=== PATIENT | male | born 1940 | race Hispanic/Latino ===

== ENCOUNTER 2017-01-10 10:08 | Outpatient (CLI) | payer MEDICARE, BC ==
--- NOTE | 2017-01-10 11:41 | MRI ---
BRAIN MRI WITH AND WITHOUT CONTRAST: DATE: 01/10/17. COMPARISON: None. HISTORY: Sudden hearing loss on the right, air buzzing sound in right ear. TECHNIQUE: Multiplanar, multisequence MR imaging of the brain is obtained with and without contrast using an in ternal auditory canal protocol. FINDINGS: The diffusion weighted imaging demonstrates no evidence for acute infarction. Regional bone marrow signal intensity appears within normal limits. There is mild polypoid mucosal thickening involving the alveolar recess of bilateral maxillary sinus es. There is mild diffuse cerebral volume loss. No midline shift or mass effect present. No ventricula r enlargement noted. Thin section T2 weighted imaging through the skull base demonstrates normal T2 signal intensity in t he region of the cerebellopontine angle, internal auditory canal, cochlea, vestibule, and semicircul ar canals bilaterally. Arterial flow voids at the axial level of the skull base appear grossly unremarkable on the T2 weigh delon imaging. Postcontrast imaging demonstrates no abnormal enhancement within the brain parenchyma. In addition, there is no abnormal enhancement involving the region of the cerebellopontine angle on either side. No abnormal enhancement of the internal auditory canal, cochlea, vestibule, or semicircular canals noted on either side. There is a slightly high-riding jugular bulb on the right. IMPRESSION: Mildly high-riding right jugular bulb. The study appears grossly unremarkable otherwise. POS: [facility]
== END 2017-01-10 10:09 | disposition home or self-care (01) ==
LOC: MRI 10:08
PROVIDERS: ATTEND Specialist
DX: H91.20 Sudden idiopathic hearing loss, unspecified ear (principal); H83.8X9 Other specified diseases of inner ear, unspecified ear
CPT/HCPCS: 70553

== ENCOUNTER 2017-03-24 12:02 | Outpatient (CLI) | payer MEDICARE, BC ==
--- NOTE | 2017-03-24 12:28 | RAD ---
RADIOGRAPH CHEST 2 VIEWS: HISTORY: 76-year-old male with dyspnea. FINDINGS: There is no air space density, pulmonary edema, pleural effusion, pneumothorax, or cardiomegaly. IMPRESSION: No acute cardiopulmonary findings. conrado POS: [facility]
== END 2017-03-24 12:03 | disposition home or self-care (01) ==
LOC: RAD 12:02
PROVIDERS: ATTEND Internal Medicine Pulmonary Disease
DX: R06.00 Dyspnea, unspecified (principal)
CPT/HCPCS: 71020

== ENCOUNTER 2017-09-20 13:11 | Emergency (ER) | payer MEDICARE, BC ==
[2017-09-20 13:49] LABS: #Eosinphils 0.1 thou/uL (0.0-0.7); #Monocytes 0.5 thou/uL (0.11-0.59); %Basophils 0.9 % (0.0-1.0); %Eosinophils 2.4 % (0.0-10.0); %Lymphocytes 34.7 % (21.0-51.0); %Monocytes 8.6 % (0.0-10.0); %Neutrophils 53.5 % (42.0-75.0); Hemoglobin 16.2 g/dL (14.0-18.0); Mean Corpuscular HGB CONC 34.2 g/dL (32.0-36.0); Mean Corpuscular Hemoglobin 30.8 pg (27.0-31.0); Mean Corpuscular Volume 90.1 fl (80.0-94.0); Mean Platelet Volume 8.3 fL (7.4-10.4); Platelet Count 199 thou/uL (130-400); RBC Distribution Width 12.6 % (11.5-14.5); Red Blood Cell (RBC) Count 5.27 mill/uL (4.70-6.10); White Blood Cell (WBC) Count 5.7 thou/uL (4.8-10.8)
[2017-09-20] MEDS ORDERED: Aspirin 325 MG TAB ONE (14:03)
[2017-09-20 14:11] LABS: ALT (SGPT) 15 U/L (8-55); AST (SGOT) 15 U/L (5-34); Albumin 4.5 g/dL (3.4-4.8); Alkaline Phosphatase 67 U/L (40-150); Anion Gap 12 mmol/L (10-20); BUN (Urea Nitrogen) 24 mg/dL (8.4-25.7); Bilirubin, Total 0.5 mg/dL (0.2-1.2); CK (CPK) 153 U/L (30-200); Calc. Creatinine Clearance 0 mL/min (70-130); Calcium 9.4 mg/dL (7.8-10.44); Carbon Dioxide 19 mmol/L (23-31); Chloride 110 mmol/L (98-107); Estimated GFR-MDRD 40; Globulin 3.7 g/dL (2.4-3.5); Glucose 119 mg/dL (83-110); Potassium 4.3 mmol/L (3.5-5.1); Protein, Total 8.2 g/dL (5.8-8.1); Sodium 137 mmol/L (136-145)
[2017-09-20 14:15] LABS: CKMB 3.8 ng/mL (0-6.6); Troponin I Less than 0.010 ng/mL (< 0.028)
--- NOTE | 2017-09-20 14:21 | RAD ---
PORTABLE CHEST ONE VIEW: Date: 09-20-17 Time: 2:02 p.m. History: Chest pain. FINDINGS: Comparison is made with exam of 03-24-17. The heart size is normal. The lungs are expanded. The aorta is tortuous. No confluent areas of consol idation, pneumothoraces or pleural effusions are seen. IMPRESSION: No radiographic evidence of acute cardiopulmonary process. POS: [facility]
--- NOTE | 2017-09-20 20:17 | CON ---
DATE OF CONSULTATION: 09/20/2017 PRIMARY CARE PHYSICIAN: Dr. Stephane Abbott. CHIEF COMPLAINT: Chest pain. HISTORY OF PRESENT ILLNESS: Mr. Razo is a pleasant 76-year-old gentleman that has no significant past medical history who presented to the emergency room after experiencing a pressure-like sensatio n in his chest he says. It was not so much pain as it was, he felt like it was hard to breathe. He says this happened around 12:30 today while he was driving his car. 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 He says he felt like it was diffic ult to take in a deep breath and then he started to feel kind of sweaty. It lasted about 30 minutes and then went away. He denies any other symptoms such as nausea, vomiting, no leg swelling, etc. He came to the emergency room for evaluation because he was told that if anything like this ever happen s to him, he should have it checked out. When asked if he has any heart disease, he says no. He had a stress test about 3 years ago in our system which was negative and says that he believes that was just for preop evaluation and he says that he had a stress test about a year ago which was negative. He also says that something like this happen to him a while back and [facility] and he thinks it was due to acid reflux after eating a hea vy meal with the steak and baked potato with lots of sour cream. He does admit that he did have a he isaac meal about 11:00 this afternoon before this happened. He says he ate 2 pretty long chimichanga t acos which were quite spicy and he also has been on an antibiotic over the last couple of days for so me type of skin infection. Right now, the patient feels fine. He says he does not have any signific ant complaints whatsoever. REVIEW OF SYSTEMS: Constitutional: There have been no fevers, chills, no night sweats, no weight lo ss. HEENT: No headache, no dizziness, no visual changes, no sore throat, rhinorrhea, neck pain, no adenopathy. Pulmonary: No hemoptysis, no cough, no wheezing. Cardiovascular: Is as the history of present illness. No PND, no orthopnea. No lower extremity edema. He has good exercise tolerance. He can walk a flight of steps without any difficulty. Gastrointestinal: No abdominal pain, no naus ea, no vomiting, no change in bowels. Genitourinary: No urinary frequency, hematuria, no hesitancy. Neurologic: No focal weakness, numbness, no seizures. Psychiatric: No symptoms of anxiety or dep ression. Skin/Integument: No skin changes. No rash. PAST MEDICAL HISTORY: Negative. PAST SURGICAL HISTORY: He has had an L4-L5 laminectomy. SOCIAL HISTORY: He denies smoking ever. He occasionally drinks. He is and has been for over 20 years and has never remarried. He has 3 sons, 2 that live in [facility]. ALLERGIES: No known drug allergies. FAMILY HISTORY: Significant for heart disease in his father, but he says his father lived to be in [facility] 90s, probably needed a pacemaker and could have lived longer. CURRENT MEDICATIONS: Aspirin only. PHYSICAL EXAMINATION: GENERAL: He is alert and oriented. He appears to be in no acute distress. VITAL SIGNS: Blood pressure was approximately 125/70, heart rate 70, respiratory rate of 18, tempera ture is 98.6. HEENT: Pupils are equal, round, and reactive. Extraocular muscles are intact. His sclerae are anic teric. Throat no erythema, no exudates. NECK: No adenopathy, no bruits. LUNGS: Clear to auscultation. There is no wheezing or rales. CARDIOVASCULAR: He has a normal S1, S2. There is no S3 or S4. No murmurs, clicks or rubs. ABDOMEN: Soft, nontender, nondistended. Positive for bowel sounds. There is no rebound or guarding . EXTREMITIES: There is no clubbing, cyanosis, no edema. NEUROLOGICALLY: The exam is nonfocal. LABORATORY: White blood cell count 5.7, hemoglobin 16.2, hematocrit is 47.4, platelet count is 199. Sodium 137, potassium 4.3, chloride is 110, CO2 is 19, BUN of 24, creatinine 1.69, glucose is 119. Troponin is less than 0.010. ASSESSMENT AND PLAN: This is a pleasant 76-year-old gentleman who presented to the emergency room wi complaints of chest discomfort more like a sensation of difficulty taking a deep breath. However, the symptom has completely resolved. His troponin is negative. His EKG had some T-wave inversions inferiorly into an aVL; however, the patient has had reportedly a nuclear stress test recently which was negative and also had a stress test in our system a few years back which was negative. Given manasa t his symptoms did not last long and have completely resolved, I think it is reasonable that he can b e discharged from the emergency room with close outpatient followup with his primary care physician i n 1 week. I suspect that his symptoms could be GI related as it had been reportedly in the past and should he have any recurrent symptoms, then he can return to the emergency room. He is also instruct ed to take the antibiotic which was possibly doxycycline or Bactrim with food and also with plenty of fluids and to avoid greasy and spicy foods.
== END 2017-09-20 15:51 | disposition home or self-care (01) ==
LOC: ERS 13:11
DX: R07.9 Chest pain, unspecified (principal); Z79.82 Long term (current) use of aspirin
CPT/HCPCS: 71045; 80053; 82553; 83880; 84484; 85025; 93005

== ENCOUNTER 2018-01-19 19:30 | Outpatient (CLI) | payer MEDICARE, BC | END 2018-01-19 19:31 | disposition home or self-care (01) | LOC: SLEEPLAB 19:30 | PROVIDERS: ATTEND Otolaryngology | DX: G47.33 Obstructive sleep apnea (adult) (pediatric) (principal); R06.83 Snoring | CPT/HCPCS: 95811 ==

== ENCOUNTER 2018-07-31 13:45 | Outpatient (CLI) | payer MEDICARE, BC ==
--- NOTE | 2018-08-09 12:04 | ULT ---
LOWER EXTREMITY ARTERIAL EVALUATION USING DOPPLER WAVEFORM ANALYSIS AND SEGMENTAL LIMB PRESSURES: Examination of the Doppler waveforms reveals normal Doppler waveforms bilaterally in both legs extend ing from the femoral artery to the pedal vessels. Ankle-arm index is normal at about 1.1 bilaterally and toe-brachial index is normal. This would be considered a normal resting arterial study of the lower extremity and would be inconsis tent with any significant vascular claudication. POS: [facility]
== END 2018-07-31 13:46 | disposition home or self-care (01) ==
LOC: ULT 13:45
PROVIDERS: ATTEND Family Medicine
DX: R09.89 Other specified symptoms and signs involving the circulatory and respiratory systems (principal)
CPT/HCPCS: 93922

== ENCOUNTER 2018-08-07 12:34 | Outpatient (CLI) | payer MEDICARE, BC ==
--- NOTE | 2018-08-07 14:12 | MRI ---
MRI LUMBAR SPINE WITH AND WITHOUT CONTRAST: HISTORY: Pain. COMPARISON: None. FINDINGS: Conus medullaris is normal in morphology and terminates at the L1 level. L1-2:No significant stenosis L2-3:No significant stenosis L3-4:Broad-based disc protrusion results in near-complete obliteration of the thecal sac. There is as sociated redundancy of nerve roots of cauda equina due to the severe central canal stenosis. Moderate biforaminal stenosis. Modic type II degenerative signal alteration is present. There is retr olisthesis of L3 on 4. L4-5:Disc osteophyte complex mildly effaces ventral thecal sac. There is mild biforaminal stenosis. T here is grade 1 spondylolisthesis. L5-S1:Disc osteophyte complex mildly effaces ventral thecal sac, with mild right foraminal stenosis a nd moderate left foraminal stenosis. Postcontrast imaging reveals no evidence of pathologic enhancement of the conus medullaris or evidenc e of mass-producing enhancement within the vertebral canal. IMPRESSION: Severe central canal stenosis with near complete obliteration of the thecal sac at the L3-4 level due to broad-based disc protrusion. Transcribed Date/Time: 08/07/2018 2:15 PM
[2018-08-07] MEDS ORDERED: Gadobenate Dimeglumine 529 MG/1 ML (20ML VIAL) ONE (17:13)
== END 2018-08-07 12:35 | disposition home or self-care (01) ==
LOC: MRI 12:34
PROVIDERS: ATTEND Family Medicine
DX: M54.17 Radiculopathy, lumbosacral region (principal); M51.26 Other intervertebral disc displacement, lumbar region; M48.061 Spinal stenosis, lumbar region without neurogenic claudication
CPT/HCPCS: 72158; 82565; A9577

== ENCOUNTER 2019-09-08 11:49 | Inpatient (IN) | payer MEDICARE, BC ==
[~2019-09-08 11:49] MED LIST: Iopamidol-370 76% 500 ML 1 ML ONE
[2019-09-08 12:47] LABS: #Lymphocytes 1.5 thou/uL (1.20-3.40); #Monocytes 1.2 thou/uL (0.11-0.59); #Neutrophils 10.6 thou/uL (1.40-6.50); %Basophils 0.4 % (0.0-1.0); %Eosinophils 0.1 % (0.0-10.0); %Lymphocytes 11.4 % (21.0-51.0); %Monocytes 8.7 % (0.0-10.0); %Neutrophils 79.4 % (42.0-75.0); Hemoglobin 14.5 g/dL (14.0-18.0); Mean Corpuscular HGB CONC 34.6 g/dL (32.0-36.0); Mean Corpuscular Hemoglobin 31.5 pg (27.0-31.0); Mean Corpuscular Volume 91.3 fL (78.0-98.0); Mean Platelet Volume 9.2 fL (7.4-10.4); Platelet Count 188 thou/uL (130-400); RBC Distribution Width 12.6 % (11.5-14.5); Red Blood Cell (RBC) Count 4.61 mill/uL (4.70-6.10); White Blood Cell (WBC) Count 13.4 thou/uL (4.8-10.8)
[2019-09-08 13:10] LABS: ALT (SGPT) 12 U/L (8-55); AST (SGOT) 13 U/L (5-34); Albumin 4.1 g/dL (3.4-4.8); Alkaline Phosphatase 66 U/L (40-110); Anion Gap 15 mmol/L (10-20); BUN (Urea Nitrogen) 23 mg/dL (8.4-25.7); Bilirubin, Total 1.2 mg/dL (0.2-1.2); Calc. Creatinine Clearance 0 mL/min (70-130); Calcium 8.8 mg/dL (7.8-10.44); Carbon Dioxide 19 mmol/L (23-31); Chloride 110 mmol/L (98-107); Estimated GFR-MDRD 49; Globulin 3.4 g/dL (2.4-3.5); Glucose 108 mg/dL (83-110); Potassium 3.8 mmol/L (3.5-5.1); Protein, Total 7.5 g/dL (5.8-8.1); Sodium 140 mmol/L (136-145)
--- NOTE | 2019-09-08 14:12 | CT ---
CT OF LEFT HAND AND FOREARM PERFORMED WITH CONTRAST EHNANCEMENT: HISTORY: Patient reports a left hand laceration on the dorsum of the hand four days ago while cleaning lawnmow er blades. Now with fever and soft tissue swelling. Unable to flex second and third metacarpal phalan geal joints. There is no evidence of fracture or any bony destructive type change. 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 Slight increased distance between the scaphoid and lunate w ould raise the possibility of an underlying scapholunate ligament injury. This is not felt to be rela delon to patient's trauma. Soft tissue swelling is on the dorsum of the hand and forearm. There is no signs of abscess. IMPRESSION: Soft tissue swelling on the dorsum of the hand and forearm region. No evidence of abscess and no sign s for any type of compartment syndrome or any associated myositis. POS: [facility]
[2019-09-08] MEDS ORDERED: Ondansetron PF 4 MG/2 ML Vial IVP PRN ×2 (14:51→19:58)
[2019-09-08] MEDS ORDERED: Acetaminophen 325 MG TAB PO PRN (14:51)
[2019-09-08] MEDS ORDERED: Ondansetron ODT 4 MG TAB SL PRN (14:51)
[2019-09-08] MEDS ORDERED: Ibuprofen 200 MG TAB PO PRN (19:58)
[2019-09-08] MEDS ORDERED: hydrALAZINE 20 MG/ML VIAL SLOW IVP PRN (19:58)
[2019-09-08] MEDS ORDERED: Acetaminophen 500 MG TAB PO PRN (19:58)
[2019-09-08] MEDS ORDERED: Ondansetron ODT 4 MG TAB PO PRN (19:58)
[2019-09-08] MEDS ORDERED: cefTRIAXone\\ROCEPHIN 2 GM in Sodium Chloride 0.9% 100 ML IVPB SCH ×2 (20:15→21:00)
[2019-09-08] MEDS ORDERED: cefTRIAXone\\ROCEPHIN 2 GM VIAL ONE (20:25)
[2019-09-08] MEDS: Sodium Chloride 0.9% 1,000 ML IV SCH (20:31)
[2019-09-08] MEDS ORDERED: Vancomycin HCl 1 GM in Sodium Chloride 0.9% 250 ML 250 ML IVPB SCH (21:00)
--- NOTE | 2019-09-08 21:02 | HP ---
PRIMARY CARE PROVIDER: Dr. Stephane Abbott. CHIEF COMPLAINT: Left hand swelling and pain. HISTORY OF PRESENT ILLNESS: This is a 78-year-old male, who presents to [facility] Emergency Department, complaining of approximately 4-day history of left hand swelling, pain after a small laceration over the dorsum of the index finger while sharpening a metal object at home. 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 Patient noted over approximately 48-hour time period increasing swelling and pain to the hand prompting him to seek medical attention at his primary care provider's office. Patient was evaluated and given a tetanus immunization. In addition, received intramuscular penicillin and Keflex with clindamycin for oral use. The patient states he had increased abdominal pain and discomfort and noticed the swelling increased up the forearm near the elbow. Patient became increasingly concerned and presented to the emergency room for evaluation. Patient did admit to feeling chilled and myalgias mainly with left hand and left forearm pain. In the emergency room, patient underwent general evaluation with the oral temperature documented at 100.2 degrees Fahrenheit. Patient received IV doxycycline as well as CT imaging of the hand showing soft tissue swelling, but no organized fluid collection or abscess. PAST MEDICAL HISTORY: Degenerative joint disease of the lumbar spine. PAST SURGICAL HISTORY: Status post L4 on L5 laminectomy/decompression, 09/2012. CURRENT MEDICATIONS: 1. Aspirin 81 mg p.o. daily. 2. Gabapentin 300 mg p.o. t.i.d. ALLERGIES: NO KNOWN DRUG ALLERGIES. FAMILY HISTORY: Positive for hypertension. SOCIAL HISTORY: Resides in [place], [place]. Retired. Occasional alcohol use. No illicit drug use or tobacco use. REVIEW OF SYSTEMS: CONSTITUTIONAL: Negative for weight loss or gain, ability to conduct usual activities. SKIN: Negative for rash, itching. EYES: Negative for double vision, pain. ENT/MOUTH: Negative for nose bleeding, neck stiffness, pain, tenderness. CARDIOVASCULAR: Negative for palpitations, dyspnea on exertion, orthopnea. RESPIRATORY: Negative for shortness of breath, wheezing, cough, hemoptysis, fever or night sweats. GASTROINTESTINAL: Negative for poor appetite, abdominal pain, heartburn, nausea, vomiting, constipation, or diarrhea. GENITOURINARY: Negative for urgency, frequency, dysuria, nocturia. MUSCULOSKELETAL: Negative for pain, swelling. NEUROLOGIC/PSYCHIATRIC: Negative for anxiety, depression. ALLERGY/IMMUNOLOGIC: Negative for skin rash, bleeding tendency. Otherwise, negative, except as stated per HPI. PHYSICAL EXAMINATION: VITAL SIGNS: On admission, blood pressure 123/72; pulse 64; respiratory rate 18; temperature 98.6 degrees Fahrenheit currently, T-max 100.2 degrees Fahrenheit; and O2 saturation 97% on room air. GENERAL APPEARANCE: This is a 78-year-old male, alert and oriented x3, pleasant, responsive, in no acute distress. HEENT: Pupils are equal, round, and reactive to light and accommodation. Extraocular muscles are intact. No scleral icterus. No conjunctival injection. Nares patent. OP is clear. Teeth in good repair. NECK: Supple. No cervical adenopathy. No thyromegaly. No carotid bruits. No JVD appreciated. Cervical spine with full active and passive range of motion. No meningeal signs noted. CHEST: Lungs are clear to auscultation bilaterally. CARDIOVASCULAR: S1, S2 without noted murmur, rub, or gallop. ABDOMEN: Rounded, soft, nontender, and nondistended. Bowel sounds are positive in all 4 quadrants. There is no hepatosplenomegaly. No abdominal bruits. No rebound or guarding appreciated. EXTREMITIES: Left hand with edema globally on the dorsum and all digits extending into the proximal forearm. Positive tenderness to palpation with some fluctuance noted in the dorsum of the hand over the second and third metacarpals. Approximately 1 cm laceration over the metacarpophalangeal joint of the index and middle finger. Pulses are palpable at the radial artery of the left upper extremity. No lower extremity edema appreciated. NEUROLOGIC: Cranial nerves 2 through 12 are grossly intact. No focal or lateralizing signs appreciated. Decreased range of motion of the left hand and digits due to edema. Sensation intact distally. PERTINENT LABORATORY AND X-RAY FINDINGS: Sodium 140, potassium 3.8, chloride is 110, CO2 of 19, BUN 23, creatinine 1.39, estimated GFR of 49, glucose 108, and calcium 8.8. LFTs within normal limits. CBC showed a white blood cell count of 13.4, hemoglobin 14.5, hematocrit 42.1, and platelet count 188 with 79% neutrophils. CT of the left upper extremity shows soft tissue swelling on the dorsum of the hand and forearm region. No abscess identified. ASSESSMENT/PLAN: 1. Left hand/forearm cellulitis. Patient will be observed on the medical floor. We will initiate vancomycin 1 g IV q.12 hours with additional Rocephin 2 g IV q.24 hours. Consult Orthopedic Surgery Service for any further recommendations and surveillance. No organized fluid collection or abscess identified by CT imaging. We will monitor closely due to the location of the laceration. Pain control as clinically indicated. Tetanus immunization up to date. 2. Chronic kidney disease, stage 3. We will continue IV fluids at 75 mL/h. Avoid nephrotoxic agents and limit contrast exposure. Repeat creatinine in the a.m. 3. Neutrophilic leukocytosis. Secondarily to #1. Continue treatment as outlined in #1 and repeat CBC in the a.m. 4. Prophylaxis. SCDs while in bed. Pepcid 20 mg p.o. b.i.d. Tetanus immunization up to date. 5. Code status. Full. Surrogate medical decision maker is patient's granddaughter. Job ID: [id number]
[2019-09-08] MEDS: Famotidine 20 MG TAB PO SCH (21:12)
[2019-09-08] MEDS: diphenhydrAMINE 25 MG CAP PO SCH (21:13)
[2019-09-08] MEDS: Gabapentin 300 MG CAP PO SCH (21:13)
[2019-09-08] MEDS ORDERED: Vancomycin 1 GM in Premix Bag 1 BAG IVPB SCH (21:30)
[2019-09-09 04:12] LABS: Anion Gap 13 mmol/L (10-20); BUN (Urea Nitrogen) 22 mg/dL (8.4-25.7); Calc. Creatinine Clearance 44 mL/min (70-130); Calcium 8.1 mg/dL (7.8-10.44); Carbon Dioxide 20 mmol/L (23-31); Chloride 111 mmol/L (98-107); Estimated GFR-MDRD 54; Glucose 94 mg/dL (83-110); Potassium 3.9 mmol/L (3.5-5.1); Sodium 140 mmol/L (136-145)
[2019-09-09 04:45] LABS: Hemoglobin 13.8 g/dL (14.0-18.0); Mean Corpuscular HGB CONC 33.9 g/dL (32.0-36.0); Mean Corpuscular Hemoglobin 31.1 pg (27.0-31.0); Mean Corpuscular Volume 91.9 fL (78.0-98.0); Mean Platelet Volume 9.1 fL (7.4-10.4); Platelet Count 176 thou/uL (130-400); RBC Distribution Width 12.6 % (11.5-14.5); Red Blood Cell (RBC) Count 4.43 mill/uL (4.70-6.10)
[2019-09-09 04:46] LABS: Band 5 % (5-11); Eosinophils 3 % (0-10); Lymphocytes 29 % (21-51); MDiff Complete? YES; Monocytes 6 % (0-10); Neutrophil 57 % (42-75); Platelet Morphology Comment Appears Adequate
--- NOTE | 2019-09-09 08:44 | CON ---
DATE OF CONSULTATION: 09/09/2019 REQUESTING PHYSICIAN: Dr. Pollack. CONSULTING PHYSICIAN: Andrew Issa MD REASON FOR CONSULTATION: Left hand pain and swelling. HISTORY OF PRESENT ILLNESS: This is a 78-year-old male, who presented to our facility yesterday afternoon complaining of left hand pain and swelling that started after an injury involving the hand this past Tuesday, which was 4 days ago. 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 After a couple of days, he presented to his primary care doctor where he received some antibiotics. He then felt that this was worsening and presented to our emergency department. He has been admitted to the Medicine Service. He has been receiving IV antibiotics over the last 24 hours. We were asked to see the patient for this reason. Currently at bedside, the patient states that he feels that he is much improved since coming to the hospital yesterday. He is able to move his digits today, where he was unable to do so yesterday secondary to swelling. He is right-hand dominant. Denies any numbness or tingling. Denies any other complaints at this time. PAST MEDICAL HISTORY: Significant for degenerative joint disease of the lumbar spine. PAST SURGICAL HISTORY: Status post L4-L5 laminectomy and decompression in 2012. ALLERGIES: NO KNOWN DRUG ALLERGIES. FAMILY HISTORY: Noncontributory. SOCIAL HISTORY: The patient is a [place] resident. He is retired. Occasional alcohol use. Nonsmoker. REVIEW OF SYSTEMS: Ten-point review of systems is conducted and otherwise negative except for stated above. PHYSICAL EXAMINATION: CURRENT VITAL SIGNS: Temperature of 98.4, pulse of 56, respiratory rate of 16, blood pressure of 91/56. GENERAL: The patient is awake and alert. He is sitting up in bed. He is pleasant and cooperative with exam findings today. HEENT: Normocephalic, atraumatic. NECK: Supple. Trachea midline. LUNGS: Breathing is nonlabored. EXTREMITIES: The left upper extremity is evaluated. There is a bandage covering the dorsum of his hand. This is removed for evaluation. There is approximately 2 cm healing laceration to the dorsum of the hand just proximal to the MCP of the index finger. This is dry. No bleeding. No drainage. [id number] soft tissue swelling just in the hand up into the wrist. There is a line marking his erythema from yesterday. This has significantly decreased as his line is fpc up his forearm. He is able to extend the digits, has difficulty flexing the digits secondary to swelling. Fingers are warm to touch. Distal neurovascular status is intact. Remainder of extremities show no signs of obvious injury. IMAGING STUDIES: Including upper extremity CT completed on 09/08/2019, shows soft tissue swelling of the dorsum of the hand and the forearm region. No abscess or any type of fluid collection. No associated myositis. ASSESSMENT: Status post injury to the dorsum of the hand with laceration. PLAN: At this time, the patient appears to be significantly improved from yesterday. There is no fluid collection seen on imaging. At this point, no surgical intervention is warranted. He will continue care per the Medicine Service. Job ID: [id number]
[2019-09-09] MEDS: Famotidine 20 MG TAB PO SCH (08:59)
[2019-09-09] MEDS: Aspirin 81 mg Enteric Coated Tablet PO SCH (08:59)
[2019-09-09] MEDS: Vancomycin 1 GM in Premix Bag 1 BAG IVPB SCH ×2 (08:59→21:01)
[2019-09-09] MEDS: Gabapentin 300 MG CAP PO SCH ×3 (08:59→20:05)
[2019-09-09] MEDS: Bacitracin 1 PK TOP SCH ×2 (09:00→20:05)
--- NOTE | 2019-09-09 13:19 | PDOC.HOSPP ---
- Subjective Encounter Date: 09/09/19 Encounter Time: 13:15 Subjective: f/u for L hand/forearm cellulitis tx with Rocephin/Vancomycin. Overall feeling better with decreased swelling. - Objective Vital Signs & Weight: Vital Signs (12 hours) Temp Pulse Resp BP Pulse Ox 09/09/19 12:10 98.3 F 62 16 103/62 98 09/09/19 08:24 98.5 F 63 16 124/73 98 09/09/19 04:05 98.4 F 56 L 16 91/56 L 96 Weight Weight 146 lb I&O: 09/08/19 09/09/19 09/10/19 06:59 06:59 06:59 Intake Total 1574 Balance 1574 Result Diagrams: 09/09/19 03:38 09/09/19 03:38 Additional Labs: Microbiology 09/08/19 12:25 Venous blood - Right Hand Blood Culture - Preliminary Specimen has been received and culture in progress. No Growth to date. 09/08/19 12:25 Venous blood - Right Arm Blood Culture - Preliminary Specimen has been received and culture in progress. No Growth to date. Laboratory Tests 09/08/19 09/08/19 09/09/19 12:35 12:35 03:38 WBC 13.4 H Neutrophils % 79.4 H Neutrophils % (Manual) 57 Carbon Dioxide 19 L Creatinine 1.39 H Hospitalist ROS - Medication Medications: Active Medications Generic Name Dose Route Start Last Admin Trade Name Freq PRN Reason Stop Dose Admin Aspirin 81 mg 09/09/19 09:00 09/09/19 08:59 Ecotrin PO 81 mg DAILY DIVINA Administration Bacitracin 1 pk 09/09/19 09:00 09/09/19 09:00 Bacitracin TOP 1 pk BID DIVINA Administration Diphenhydramine HCl 25 mg 09/08/19 21:00 09/08/19 21:13 Benadryl PO 25 mg HS DIVINA Administration Famotidine 20 mg 09/08/19 21:00 09/09/19 08:59 Pepcid PO 20 mg BID DIVINA Administration Gabapentin 300 mg 09/08/19 21:00 09/09/19 08:59 Neurontin PO 300 mg TID DIVINA Administration Sodium Chloride 1,000 mls @ 75 mls/hr 09/08/19 20:00 09/08/19 20:31 Normal Saline 0.9% IV 1,000 mls .[id number] DIVINA Administration Vancomycin HCl 1 gm/ Device 200 mls @ 200 mls/hr 09/09/19 09:00 09/09/19 08: 59 IVPB 200 mls Q12HR DIVINA Administration - Exam General Appearance: NAD, awake alert Eye: PERRL, anicteric sclera ENT: normocephalic atraumatic, no oropharyngeal lesions Neck: supple, symmetric, no JVD, no thyromegaly, no lymphadenopathy Heart: RRR, no murmur, no gallops, no rubs, normal peripheral pulses Heart - other findings: S1, S2 Respiratory: CTAB, no wheezes, no rales, no ronchi, normal chest expansion Gastrointestinal: soft, non-tender, non-distended, normal bowel sounds, no palpable masses Extremities: no cyanosis Extremities - other findings: L hand edema present, decreased edema of forearm, N/V intact distally Skin: normal turgor Neurological: cranial nerve grossly intact, no new deficit Musculoskeletal: normal tone, normal strength, no muscle wasting Psychiatric: normal affect, A&O x 3 Hosp A/P (1) Cellulitis of left hand Code(s): L03.114 - CELLULITIS OF LEFT UPPER LIMB Status: Acute Plan: Improving, continue local care, elevation, continue Rocephin/Vancomycin (2) Acute kidney injury superimposed on CKD Code(s): N17.9 - ACUTE KIDNEY FAILURE, UNSPECIFIED; N18.9 - CHRONIC KIDNEY DISEASE, UNSPECIFIED Status: Acute Plan: Improving, continue low-volume IVF's (3) Metabolic acidosis Code(s): E87.2 - ACIDOSIS Status: Acute Plan: Likely due to #1, continue IVF's, serial monitoring (4) Neutrophilic leukocytosis Code(s): D72.9 - DISORDER OF WHITE BLOOD CELLS, UNSPECIFIED Status: Acute Plan: Resolving with IV abx - Plan continue antibiotics, out of bed/ambulate, DVT proph w/SCDs Stable overall Continue Rocephin/Vancomycin another 24h Elevate LUE/local wound care Continue IVF's AM lab: BMP Likely home in 24h
[2019-09-09] MEDS: Sodium Chloride 0.9% 1,000 ML IV SCH (14:20)
[2019-09-09] MEDS: cefTRIAXone\\ROCEPHIN 2 GM in Sodium Chloride 0.9% 100 ML IVPB SCH (20:04)
[2019-09-09] MEDS: diphenhydrAMINE 25 MG CAP PO SCH (21:50)
[2019-09-10 04:17] LABS: Anion Gap 13 mmol/L (10-20); BUN (Urea Nitrogen) 27 mg/dL (8.4-25.7); Calc. Creatinine Clearance 37 mL/min (70-130); Calcium 8.3 mg/dL (7.8-10.44); Carbon Dioxide 18 mmol/L (23-31); Chloride 112 mmol/L (98-107); Estimated GFR-MDRD 44; Glucose 103 mg/dL (83-110); Potassium 4.3 mmol/L (3.5-5.1); Sodium 139 mmol/L (136-145)
[2019-09-10] MEDS: Sodium Chloride 0.9% 1,000 ML IV SCH ×3 (04:51→19:59)
--- NOTE | 2019-09-10 08:55 | PDOC.HOSPP ---
- Subjective Encounter Date: 09/10/19 Encounter Time: 08:35 Subjective: f/u for L hand cellulitis after small laceration. Receiving Rocephin/ Vancomycin. Still has significant L hand swellling and some drainage noted. - Objective Vital Signs & Weight: Vital Signs (12 hours) Temp Pulse Resp BP Pulse Ox 09/10/19 07:52 97 09/10/19 07:33 98.0 F 52 L 18 117/69 97 Weight Weight 146 lb I&O: 09/09/19 09/10/19 09/11/19 06:59 06:59 06:59 Intake Total 1574 2935 Balance 1574 2935 Result Diagrams: 09/09/19 03:38 09/10/19 03:45 Additional Labs: Microbiology 09/08/19 12:25 Venous blood - Right Hand Blood Culture - Preliminary Specimen has been received and culture in progress. No Growth to date. 09/08/19 12:25 Venous blood - Right Arm Blood Culture - Preliminary Specimen has been received and culture in progress. No Growth to date. Laboratory Tests 09/08/19 09/08/19 09/09/19 12:35 12:35 03:38 WBC 13.4 H Neutrophils % 79.4 H Neutrophils % (Manual) 57 Carbon Dioxide 19 L Creatinine 1.39 H Hospitalist ROS - Medication Medications: Active Medications Generic Name Dose Route Start Last Admin Trade Name Freq PRN Reason Stop Dose Admin Acetaminophen 1,000 mg 09/08/19 19:58 09/09/19 18:46 Tylenol PO 1,000 mg Q6H PRN Administration Mild Pain (1-3) Aspirin 81 mg 09/09/19 09:00 09/09/19 08:59 Ecotrin PO 81 mg DAILY IDVINA Administration Bacitracin 1 pk 09/09/19 09:00 09/09/19 20:05 Bacitracin TOP 1 pk BID DIVINA Administration Diphenhydramine HCl 25 mg 09/08/19 21:00 09/09/19 21:50 Benadryl PO Not Given HS DIVINA Gabapentin 300 mg 09/08/19 21:00 09/09/19 20:05 Neurontin PO 300 mg TID DIVINA Administration Sodium Chloride 1,000 mls @ 75 mls/hr 09/08/19 20:00 09/10/19 04:51 Normal Saline 0.9% IV 1,000 mls .[id number] DIIVNA Administration Ceftriaxone Sodium 2 gm/ 100 mls @ 200 mls/hr 09/09/19 20:00 09/09/19 20:04 Sodium Chloride IVPB 100 mls 2000 DIVINA Administration Vancomycin HCl 1 gm/ Device 200 mls @ 200 mls/hr 09/09/19 09:00 09/09/19 21: 01 IVPB 200 mls Q12HR DIVINA Administration - Exam General Appearance: NAD, awake alert Eye: PERRL, anicteric sclera ENT: normocephalic atraumatic, no oropharyngeal lesions Neck: supple, symmetric, no JVD, no thyromegaly, no lymphadenopathy Heart: RRR, no murmur, no gallops, no rubs, normal peripheral pulses Heart - other findings: S1, S2 Respiratory: CTAB, no wheezes, no rales, no ronchi, normal chest expansion Gastrointestinal: soft, non-tender, non-distended, normal bowel sounds, no palpable masses Extremities - other findings: L hand edema/serous drainage, + edema, N/V intact distally Neurological: cranial nerve grossly intact, no new deficit Musculoskeletal: normal tone, normal strength, no muscle wasting Psychiatric: normal affect, A&O x 3 Hosp A/P (1) Cellulitis of left hand Code(s): L03.114 - CELLULITIS OF LEFT UPPER LIMB Status: Acute Plan: Persistent, continue Vancomycin/Rocephin, local wound care, elevate LUE, may need to consider hand specialist in next 24h if not improving (2) Acute kidney injury superimposed on CKD Code(s): N17.9 - ACUTE KIDNEY FAILURE, UNSPECIFIED; N18.9 - CHRONIC KIDNEY DISEASE, UNSPECIFIED Status: Acute Plan: Avoid nephrotoxic meds and limit contrast, serial creatinine monitoring (3) Metabolic acidosis Code(s): E87.2 - ACIDOSIS Status: Acute (4) Neutrophilic leukocytosis Code(s): D72.9 - DISORDER OF WHITE BLOOD CELLS, UNSPECIFIED Status: Acute - Plan continue antibiotics, out of bed/ambulate, DVT proph w/SCDs Stable overall Continue Rocephin/Vancomycin Elevate LUE/local wound care Continue IVF's Consider Ortho hand specialist if not improving in next 24h AM lab: BMP, CBC
[2019-09-10] MEDS: Famotidine 20 MG TAB PO SCH (09:08)
[2019-09-10] MEDS: Gabapentin 300 MG CAP PO SCH ×3 (09:08→21:09)
[2019-09-10] MEDS: Vancomycin 1 GM in Premix Bag 1 BAG IVPB SCH ×3 (09:08→21:09)
[2019-09-10] MEDS: Aspirin 81 mg Enteric Coated Tablet PO SCH (09:08)
[2019-09-10] MEDS: Bacitracin 1 PK TOP SCH ×2 (09:09→19:59)
[2019-09-10] MEDS: Vancomycin 1 GM/200 ML BAG ONE ×2 (10:14→11:08)
[2019-09-10 13:30] VITALS: BMI 24.3
[2019-09-10] MEDS: cefTRIAXone\\ROCEPHIN 2 GM in Sodium Chloride 0.9% 100 ML IVPB SCH (19:58)
[2019-09-10] MEDS: diphenhydrAMINE 25 MG CAP PO SCH (21:09)
[2019-09-11 04:07] LABS: Anion Gap 13 mmol/L (10-20); BUN (Urea Nitrogen) 22 mg/dL (8.4-25.7); Calc. Creatinine Clearance 44 mL/min (70-130); Carbon Dioxide 18 mmol/L (23-31); Chloride 114 mmol/L (98-107); Estimated GFR-MDRD 53; Glucose 111 mg/dL (83-110); Sodium 141 mmol/L (136-145)
[2019-09-11 04:44] LABS: Band 4 % (5-11); Eosinophils 10 % (0-10); Hemoglobin 13.5 g/dL (14.0-18.0); Lymphocytes 32 % (21-51); MDiff Complete? YES; Mean Corpuscular Hemoglobin 31.2 pg (27.0-31.0); Mean Corpuscular Volume 91.7 fL (78.0-98.0); Mean Platelet Volume 8.9 fL (7.4-10.4); Monocytes 12 % (0-10); Neutrophil 42 % (42-75); Platelet Count 195 thou/uL (130-400); RBC Distribution Width 12.5 % (11.5-14.5); Red Blood Cell (RBC) Count 4.32 mill/uL (4.70-6.10)
[2019-09-11] MEDS: Aspirin 81 mg Enteric Coated Tablet PO SCH (08:50)
[2019-09-11] MEDS: Famotidine 20 MG TAB PO SCH (08:50)
[2019-09-11] MEDS: Vancomycin 1 GM in Premix Bag 1 BAG IVPB SCH ×2 (08:50→20:43)
[2019-09-11] MEDS: Bacitracin 1 PK TOP SCH ×2 (08:51→20:48)
[2019-09-11] MEDS: Gabapentin 300 MG CAP PO SCH ×3 (08:51→20:47)
--- NOTE | 2019-09-11 09:35 | PDOC.HOSPP ---
- Subjective Encounter Date: 09/11/19 Encounter Time: 09:00 Subjective: f/u for L hand cellulitis on current Rocephin/Vancomycin. Overall improved but some residual swelling. No fever or chills. - Objective Vital Signs & Weight: Vital Signs (12 hours) Temp Pulse Resp BP Pulse Ox 09/11/19 08:00 98.3 F 52 L 16 125/77 98 Weight Admit Weight 146 lb Weight 146 lb I&O: 09/10/19 09/11/19 09/12/19 06:59 06:59 06:59 Intake Total 2935 2840 Balance 2935 2840 Result Diagrams: 09/11/19 03:33 09/11/19 03:33 Additional Labs: Microbiology 09/08/19 12:25 Venous blood - Right Hand Blood Culture - Preliminary Specimen has been received and culture in progress. No Growth to date. 09/08/19 12:25 Venous blood - Right Arm Blood Culture - Preliminary Specimen has been received and culture in progress. No Growth to date. Laboratory Tests 09/08/19 09/08/19 09/09/19 12:35 12:35 03:38 WBC 13.4 H Neutrophils % 79.4 H Neutrophils % (Manual) 57 Carbon Dioxide 19 L Creatinine 1.39 H Hospitalist ROS - Medication Medications: Active Medications Generic Name Dose Route Start Last Admin Trade Name Freq PRN Reason Stop Dose Admin Acetaminophen 1,000 mg 09/08/19 19:58 09/09/19 18:46 Tylenol PO 1,000 mg Q6H PRN Administration Mild Pain (1-3) Aspirin 81 mg 09/09/19 09:00 09/11/19 08:50 Ecotrin PO 81 mg DAILY DIVINA Administration Bacitracin 1 pk 09/09/19 09:00 09/11/19 08:51 Bacitracin TOP 1 pk BID DIVINA Administration Diphenhydramine HCl 25 mg 09/08/19 21:00 09/10/19 21:09 Benadryl PO 25 mg HS DIVINA Administration Famotidine 20 mg 09/10/19 09:00 09/11/19 08:50 Pepcid PO 20 mg DAILY DIVINA Administration Gabapentin 300 mg 09/08/19 21:00 09/11/19 08:51 Neurontin PO 300 mg TID DIVINA Administration Sodium Chloride 1,000 mls @ 75 mls/hr 09/08/19 20:00 09/10/19 19:59 Normal Saline 0.9% IV 1,000 mls .[id number] DIVINA Administration Ceftriaxone Sodium 2 gm/ 100 mls @ 200 mls/hr 09/09/19 20:00 09/10/19 19:58 Sodium Chloride IVPB 100 mls 2000 DIIVNA Administration Vancomycin HCl 1 gm/ Device 200 mls @ 200 mls/hr 09/09/19 09:00 09/11/19 08: 50 IVPB 200 mls Q12HR DIVINA Administration - Exam General Appearance: NAD, awake alert Eye: PERRL, anicteric sclera ENT: normocephalic atraumatic, no oropharyngeal lesions Neck: supple, symmetric, no JVD, no thyromegaly, no lymphadenopathy Heart: RRR, no murmur, no gallops, no rubs, normal peripheral pulses Respiratory: CTAB, no wheezes, no rales, no ronchi, normal chest expansion Gastrointestinal: soft, non-tender, non-distended, normal bowel sounds, no palpable masses Extremities: no cyanosis Extremities - other findings: L hand with edema overall decreased, N/V intact distally Skin: normal turgor Neurological: cranial nerve grossly intact, no new deficit Musculoskeletal: normal tone, normal strength, no muscle wasting Psychiatric: normal affect, A&O x 3 Hosp A/P (1) Cellulitis of left hand Code(s): L03.114 - CELLULITIS OF LEFT UPPER LIMB Status: Acute Plan: Improved, consult Ortho hand specialist for opinion regarding need for I&D, continue Rocephin/Zithromax, Elevate LUE (2) Acute kidney injury superimposed on CKD Code(s): N17.9 - ACUTE KIDNEY FAILURE, UNSPECIFIED; N18.9 - CHRONIC KIDNEY DISEASE, UNSPECIFIED Status: Acute Plan: Resolving, saline lock IVF's (3) Metabolic acidosis Code(s): E87.2 - ACIDOSIS Status: Acute Plan: Resolving (4) Neutrophilic leukocytosis Code(s): D72.9 - DISORDER OF WHITE BLOOD CELLS, UNSPECIFIED Status: Acute Plan: Resolving - Plan continue antibiotics, out of bed/ambulate, DVT proph w/SCDs Stable overall Continue Rocephin/Vancomycin Elevate LUE/local wound care Continue IVF's Consult Ortho hand specialist for any further recommendations Saline lock IVF's
[2019-09-11] MEDS: cefTRIAXone\\ROCEPHIN 2 GM in Sodium Chloride 0.9% 100 ML IVPB SCH (19:59)
[2019-09-11] MEDS: diphenhydrAMINE 25 MG CAP PO SCH (20:47)
[2019-09-12 08:18] VITALS: BP 117/72; TEMP 98.8
[2019-09-12] MEDS: Gabapentin 300 MG CAP PO SCH (09:00)
[2019-09-12] MEDS: Aspirin 81 mg Enteric Coated Tablet PO SCH (09:00)
[2019-09-12] MEDS: Vancomycin 1 GM in Premix Bag 1 BAG IVPB SCH ×2 (09:00→10:13)
[2019-09-12] MEDS: Bacitracin 1 PK TOP SCH (09:00)
[2019-09-12] MEDS: Famotidine 20 MG TAB PO SCH (09:00)
--- NOTE | 2019-09-12 21:11 | DIS ---
DATE OF ADMISSION: 09/09/2019 DATE OF DISCHARGE: 09/12/2019 DISCHARGE DIAGNOSES: 1. Left hand cellulitis with laceration, improved. 2. Acute kidney injury on chronic kidney disease, resolved. 3. Metabolic acidosis, resolved. 4. Neutrophilic leukocytosis, resolved. CONSULTATIONS: 1. Dr. Issa with [facility]. 2. Dr. Sarabia with [facility]. PERTINENT LABORATORY AND X-RAY FINDINGS: Creatinine ranged between 1.29 to 1.54, estimated GFR ranged between 44 to 54. CBC showed a white blood cell count ranging between 7.0 to 13.4. Blood cultures x2 dated 09/08/2019, showed no growth at [address] of the left upper extremity dated 09/08/2019, showed soft tissue edema at the dorsum of the hand and forearm. No definable abscess. HOSPITAL COURSE: The patient was admitted and placed on IV vancomycin and Rocephin throughout the hospital course with daily monitoring of the left hand. The patient had rapid improvement in overall edema of the left forearm with slower recovery of the edema of the dorsum of the left hand. The patient was evaluated by [facility] without recommendations for surgical intervention. The patient was also evaluated by the [facility] specialty service, but no specific intervention or incision and drainage was recommended. The patient overall remained clinically stable, tolerating regular oral intake with stable vital signs. I have examined the patient at the time of discharge and discussed followup instructions. The patient verbalized understanding and agreement ready for discharge on 09/12/2019. DISCHARGE MEDICATIONS: 1. Keflex 500 mg p.o. b.i.d. x10 days. 2. Enteric-coated aspirin 81 mg p.o. daily. 3. Gabapentin 300 mg p.o. t.i.d. 4. Bacitracin ointment one application topically b.i.d. FOLLOWUP: The patient may follow up with Dr. Stephane Abbott, his primary care provider. The patient will follow up with Dr. Arnold Lamas in 2 to 3 weeks after discharge. CONDITION ON DISCHARGE: Stable. ACTIVITY: Ad-antonette. DIET: Regular. CODE STATUS: Full. DISPOSITION: Home, 09/12/2019. TIME SPENT: Total time preparing and coordinating discharge, 32 minutes. Job ID: [id number]
== END 2019-09-12 11:02 | disposition home or self-care (01) | DRG 603 ==
LOC: ERS 11:49 → ONC 15:51 → OBSVTOIN 09-09 13:32
PROVIDERS: ADMIT Family Medicine; ATTEND Family Medicine
DX: L03.114 Cellulitis of left upper limb (principal); N17.9 Acute kidney failure, unspecified; E87.2 Acidosis; M47.896 Other spondylosis, lumbar region; N18.3 Chronic kidney disease, stage 3 (moderate); Z98.890 Other specified postprocedural states
CPT/HCPCS: 36415; 80048; 80053; 80202; 85007; 85025; 85027; 87040; 96365; 96366; 96367; G0378; J0696; J3370; J3490; Q0163; Q9967

== ENCOUNTER 2022-02-14 10:35 | Emergency (ER) | payer MEDICARE, BC ==
[2022-02-14] MEDS ORDERED: Dexameth. Sod Phosp. 10 MG/ML (CHEMO USE ONLY) ONE (11:33)
== END 2022-02-14 12:05 | disposition home or self-care (01) ==
LOC: ERS 10:35
DX: M25.511 Pain in right shoulder (principal)
CPT/HCPCS: J1100